=== PATIENT | female | born 1985 | race Caucasian/White ===

== ENCOUNTER 2023-03-26 10:36 | Emergency (ER) | payer OTHER ==
[~2023-03-26] VITALS: Ht 167.6 cm; Wt 118.2 kg
[2023-03-26] MEDS ORDERED: ondansetron 4mg rapidly disintigrating tab PO ONE (11:05)
[2023-03-26] MEDS ORDERED: HYDROcodone/acetaminophen 5mg/325mg tablet PO ONE (11:05)
[2023-03-26] MEDS ORDERED: ketorolac trometh inj. 60 MG/2 ML VIAL IM ONE (11:05)
[2023-03-26 11:49] LABS: BASOPHILS # (AUTO) 0.1 X10'3 (0-0.2); BASOPHILS % (AUTO) 0.9 % (0-1); EOSINOPHILS # (AUTO) 0.3 X10'3 (0-0.9); EOSINOPHILS % (AUTO) 4.2 % (0-6); HEMATOCRIT 41.9 % (35.0-45.0); HEMOGLOBIN 14.2 g/dl (12.0-16.0); LYMPHOCYTES # (AUTO) 2.1 X10'3 (1.1-4.8); MEAN CORPUSCULAR HEMOGLOBIN 29.7 PG (27.0-31.0); MEAN CORPUSCULAR HGB CONC 33.8 g/dL (33.0-36.5); MEAN CORPUSCULAR VOLUME 87.9 FL (78-98); MEAN PLATELET VOLUME 7.9 FL (7.4-10.4); MONOCYTES # (AUTO) 0.3 X10'3 (0-0.9); NEUTROPHILS % (AUTO) 58.9 % (42-75); PLATELET COUNT 238 X10'3 (140-440); RED BLOOD COUNT 4.77 X10'6 (4.20-5.60); RED CELL DISTRIBUTION WIDTH 13.4 % (11.5-14.5); WHITE BLOOD COUNT 6.9 X10'3 (4.5-11.0)
[2023-03-26 11:51] LABS: ALANINE AMINOTRANSFERASE 23 U/L (12-78); ALBUMIN 3.5 G/DL (3.4-5.0); ALKALINE PHOSPHATASE 76 IU/L (46-116); ANION GAP 9 (8-16); ASPARTATE AMINO TRANSFERASE 6 U/L (10-37); BILIRUBIN,TOTAL 0.5 MG/DL (0.1-1.0); BLOOD UREA NITROGEN 8 MG/DL (7-18); BUN/CREATININE RATIO 10.5 (10.0-20.0); CALCIUM 8.8 MG/DL (8.5-10.1); CHLORIDE 103 MMOL/L (99-107); CREATININE 0.76 MG/DL (0.40-0.90); GLUCOSE 162 MG/DL (70-104); LIPASE 28 U/L (16-77); POTASSIUM 3.7 MMOL/L (3.5-5.1); SODIUM 139 MMOL/L (135-145); TOTAL CARBON DIOXIDE 26.8 MMOL/L (24-32); TOTAL PROTEIN 7.1 G/DL (6.4-8.2); eCRCL 96 ML/MIN; eGFR 86 ML/MIN
[2023-03-26 11:53] LABS: HCG SERUM QL NEGATIVE
[2023-03-26 12:11] LABS: BILIRUBIN,URINE NEGATIVE (Neg); CLARITY,URINE SLIGHTLY CLOUDY (Clear); COLOR,URINE YELLOW (Yellow); GLUCOSE, URINE NEGATIVE (Neg); KETONES,URINE NEGATIVE (Neg); LEUKOCYTE ESTERASE ,URINE NEGATIVE (Neg); NITRITES, URINE NEGATIVE (Neg); OCCULT BLOOD,URINE NEGATIVE (Neg); PROTEIN,URINE NEGATIVE (Neg); UROBILINOGEN,URINE 0.2 E.U/dL (0.2-1.0)
[2023-03-26 12:16] LABS: UA COLLECTION TYPE CLN CATCH MIDSTREAM
[2023-03-26 12:23] LABS: MUCUS STRANDS FEW /LPF (Neg); SQUAMOUS EPITHELIAL CELL,UR MODERATE /LPF (FEW)
[2023-03-26 12:24] LABS: BACTERIA,URINE 1+ /HPF (Neg); RBC,URINE 0-2 /HPF (0-2); WBC,URINE 0-4 /HPF (0-4)
[2023-03-26 12:25] LABS: TRANSITIONAL EPI CELLS,URINE MODERATE /HPF
[2023-03-26] MEDS ORDERED: CYCL-1 PO (13:43)
[2023-03-26 14:29] VITALS: BP 131/85; PULSE 73; RESP 18; TEMP 98.2; O2SAT 99
== END 2023-03-26 14:32 | disposition home or self-care (01) ==
LOC: ER 10:37
DX: M54.50 Low back pain, unspecified (principal); E11.9 Type 2 diabetes mellitus without complications; Z79.899 Other long term (current) drug therapy
CPT/HCPCS: 36415; 74176; 80053; 81001; 83690; 84703; 85025; 96372; 99285; J1885